=== PATIENT | male | born 1985 | race African-American/Black ===

== ENCOUNTER 2017-08-20 08:59 | Emergency (ER) | payer OTHER ==
[~2017-08-20] VITALS: Ht 182.9 cm; Wt 100.0 kg
[~2017-08-20 08:59] MED LIST: AMOXICILLIN500 MG PO; BENADRYL 50MG C50 MG PO; CEPHALEXIN500 MG PO; DENIES CURRENT MEDS; FLEXERIL10 MG PO; NAPROSYN500 MG PO; NO HOME MEDS
[2017-08-20] MEDS ORDERED: BACTRIM DS1 TAB PO (09:21)
[2017-08-20] MEDS ORDERED: MOTRIN800 MG PO (09:21)
[2017-08-20 09:33] VITALS: BP 126/88
== END 2017-08-20 09:35 | disposition home or self-care (01) | DRG 558 ==
LOC: ED 08:59
DX: M70.21 Olecranon bursitis, right elbow (principal); M25.521 Pain in right elbow

== ENCOUNTER 2019-03-03 14:54 | Emergency (ER) | payer SELFPAY ==
[~2019-03-03] VITALS: Ht 182.9 cm; Wt 80.0 kg
[~2019-03-03 14:54] MED LIST changes: +BACTRIM DS1 TAB PO; +MOTRIN800 MG PO
[2019-03-03] MEDS ORDERED: CEPHALEXIN500 M1 PO (15:27)
[2019-03-03 15:40] VITALS: BP 123/83
== END 2019-03-03 15:40 | disposition home or self-care (01) | DRG 603 ==
LOC: ED 14:54
DX: L08.9 Local infection of the skin and subcutaneous tissue, unspecified (principal); F17.200 Nicotine dependence, unspecified, uncomplicated

== ENCOUNTER 2019-09-17 | Emergency (ER) | payer SELFPAY ==
[~2019-09-17] MED LIST changes: +CEPHALEXIN500 M1 PO
[2019-09-17 21:36] LABS: URINE BILIRUBIN - DIPSTICK NEGATIVE (NEGATIVE); URINE BLOOD DIPSTICK NEGATIVE (NEGATIVE); URINE COLOR YELLOW; URINE GLUCOSE - DIPSTICK NEGATIVE (NEGATIVE); URINE KETONE TRACE mg/dL (NEGATIVE); URINE LEUK ESTERASE NEGATIVE (NEGATIVE); URINE NITRITE - DIPSTICK NEGATIVE (Negative); URINE PROTEIN - DIPSTICK NEGATIVE (NEG-TRACE); URINE SPECIFIC GRAVITY >=1.030; URINE UROBILINOGEN - DIPSTICK 0.2 E.U./dL (0.2)
[2019-09-17 21:40] LABS: BARBITURATES NEGATIVE (NEGATIVE); COCAINE NEGATIVE (NEGATIVE); HEMATOCRIT 40.9 % (39.0-50.0); HEMOGLOBIN 12.9 g/dl (14.0-18.0); IMMATURE GRANULOCYTES 0.2 % (0.0-5.0); MEAN CELL VOLUME 88.1 fL CALC (80.0-100.0); MEAN CORPUSCULAR HGB 27.8 pG CALC (26.0-32.0); MEAN CORPUSCULAR HGB CONC 31.5 g/L CALC (32.0-36.0); METHADONE NEGATIVE (NEGATIVE); NEUT# 4.48 thou/uL (1.82-7.42); OXCYCODONE NEGATIVE (NEGATIVE); RED BLOOD COUNT 4.64 mill/uL (4.70-6.10); RED CELL DISTRI WIDTH 13.2 % (11.5-15.5); TETRAHYDROCANNABIONOL POSITIVE (NEGATIVE); TRICYLIC ANTIDEPRESSANTS NEGATIVE (NEGATIVE)
[2019-09-17 21:59] LABS: ALBUMIN 4.1 g/dL (3.2-5.0); ALKALINE PHOSPHATASE 59 u/l (38-126); ANION GAP 12 (6-22 (CALC)); BILIRUBIN, TOTAL 0.5 mg/dL (0.0-1.4); BUN 17 mg/dL (9-20); BUN/CREATININE RATIO 15 (12-20 (CALC)); CARBON DIOXIDE 26 mmol/l (22-30); CHLORIDE 106 mmol/l (95-108); CREATININE 1.1 mg/dL (0.7-1.3); GFR > 60 ML/MIN (>=60 (CALC)); GFR FOR AFR.AMER. > 60 ML/MIN (>=60 (CALC)); POTASSIUM 4.3 mmol/l (3.5-5.1); SGOT/AST 27 u/l (17-59); SODIUM 139 mmol/l (137-146); TOTAL PROTEIN 7.1 g/dL (6.3-8.2)
[2019-09-17 22:03] LABS: ACT PARTIAL THROMBO TIME 27.8 SECONDS (20.0-32.5); D-DIMER 0.17 mg/L (0.19-0.60); PROTHROMBIN TIME 10.8 SECONDS (9.0-12.5)
[2019-09-17 22:11] LABS: MYOGLOBIN 87 ng/mL (0 - 121)
[2019-09-17] MEDS ORDERED: TORADOL PO (23:57)
== END 2019-09-18 00:15 | disposition home or self-care (01) | DRG 313 ==
PROVIDERS: Family Medicine
DX: R07.89 Other chest pain (principal); F17.290 Nicotine dependence, other tobacco product, uncomplicated

== ENCOUNTER 2019-11-26 10:24 | Emergency (ER) | payer SELFPAY ==
[~2019-11-26 10:24] MED LIST changes: +TORADOL PO
[2019-11-26 11:11] LABS: HEMATOCRIT 42.5 % (39.0-50.0); HEMOGLOBIN 13.4 g/dl (14.0-18.0); IMMATURE GRANULOCYTES 0.1 % (0.0-5.0); MEAN CELL VOLUME 86.9 fL CALC (80.0-100.0); MEAN CORPUSCULAR HGB 27.4 pG CALC (26.0-32.0); MEAN CORPUSCULAR HGB CONC 31.5 g/dL CAL (32.0-36.0); NEUT# 4.05 thou/uL (1.82-7.42); RED BLOOD COUNT 4.89 mill/uL (4.70-6.10); RED CELL DISTRI WIDTH 13.2 % (11.5-15.5)
[2019-11-26 11:13] LABS: URINE BILIRUBIN - DIPSTICK NEGATIVE (NEGATIVE); URINE BLOOD DIPSTICK NEGATIVE (NEGATIVE); URINE COLOR YELLOW; URINE GLUCOSE - DIPSTICK NEGATIVE (NEGATIVE); URINE KETONE NEGATIVE (NEGATIVE); URINE LEUK ESTERASE NEGATIVE (NEGATIVE); URINE NITRITE - DIPSTICK NEGATIVE (Negative); URINE PROTEIN - DIPSTICK NEGATIVE (NEG-TRACE); URINE SPECIFIC GRAVITY 1.025; URINE UROBILINOGEN - DIPSTICK 0.2 E.U./dL (0.2)
[2019-11-26 11:18] LABS: ANION GAP 9 (6-22 (CALC)); BUN 14 mg/dL (9-20); BUN/CREATININE RATIO 13 (12-20 (CALC)); CARBON DIOXIDE 27 mmol/l (22-30); CHLORIDE 105 mmol/l (95-108); CREATININE 1.1 mg/dL (0.7-1.3); GFR > 60 ML/MIN (>=60 (CALC)); GFR FOR AFR.AMER. > 60 ML/MIN (>=60 (CALC)); SODIUM 137 mmol/l (137-146)
[2019-11-26] MEDS ORDERED: VIAGRA50 MG PO ×2 (11:41→11:44)
[2019-11-26 12:23] VITALS: BP 138/96
== END 2019-11-26 12:28 | disposition home or self-care (01) | DRG 730 ==
LOC: ED 10:24
PROVIDERS: Family Medicine
DX: N52.9 Male erectile dysfunction, unspecified (principal); F17.200 Nicotine dependence, unspecified, uncomplicated

== ENCOUNTER 2022-02-13 16:16 | Emergency (ER) | payer SELFPAY ==
[~2022-02-13] VITALS: Ht 182.9 cm; Wt 90.9 kg
[~2022-02-13 16:16] MED LIST changes: +VIAGRA50 MG PO
[2022-02-13 16:55] VITALS: BP 126/83
== END 2022-02-13 19:36 | disposition left against medical advice (07) | DRG 951 ==
LOC: ED 16:16 → LWOBS 19:36
DX: Z53.21 Procedure and treatment not carried out due to patient leaving prior to being seen by health care provider (principal)

== ENCOUNTER 2022-08-26 14:46 | Emergency (ER) | payer SELFPAY ==
[~2022-08-26] VITALS: Ht 182.9 cm; Wt 60.0 kg
[2022-08-26 15:43] VITALS: BP 118/76
[2022-08-26 15:45] VITALS: BP 97/60
[2022-08-26 16:00] VITALS: BP 100/65
[2022-08-26] MEDS ORDERED: FLEXERIL5 M1 PO (17:35)
[2022-08-26] MEDS ORDERED: NAPROXEN500 MG PO (17:35)
[2022-08-26 17:49] VITALS: BP 100/65
== END 2022-08-26 18:00 | disposition home or self-care (01) | DRG 552 ==
LOC: ED 14:46
DX: M54.50 Low back pain, unspecified (principal); F17.200 Nicotine dependence, unspecified, uncomplicated

== ENCOUNTER 2022-11-20 11:45 | Emergency (ER) | payer SELFPAY ==
[~2022-11-20] VITALS: Ht 182.9 cm; Wt 82.0 kg
[2022-11-20] VITALS (15 sets, daily range): BP systolic 101–123; BP diastolic 67–86
[~2022-11-20 11:45] MED LIST changes: +FLEXERIL5 M1 PO; +NAPROXEN500 MG PO
[2022-11-20 13:28] LABS: BASO% 0.4 % (0-3); EOS% 2.7 % (0-8); HEMATOCRIT 40.3 % (39.0-50.0); HEMOGLOBIN 12.7 g/dl (14.0-18.0); IMMATURE GRANULOCYTES 0.1 % (0.0-5.0); MEAN CELL VOLUME 90.4 fL CALC (80.0-100.0); MEAN CORPUSCULAR HGB 28.5 pG CALC (26.0-32.0); MEAN CORPUSCULAR HGB CONC 31.5 g/dL CAL (32.0-36.0); MONO% 11.9 % (2-13); NEUT# 3.97 thou/uL (1.82-7.42); NEUT% 56.9 % (42-76); RED BLOOD COUNT 4.46 mill/uL (4.70-6.10); RED CELL DISTRI WIDTH 13.6 % (11.5-15.5)
[2022-11-20 13:41] LABS: ALKALINE PHOSPHATASE 48 u/l (38-126); ANION GAP 7 (6-22 (CALC)); BILIRUBIN, TOTAL 0.8 mg/dL (0.2-1.3); BUN 13 mg/dL (9-20); BUN/CREATININE RATIO 14 (12-20 (CALC)); CARBON DIOXIDE 28 mmol/l (22-30); CHLORIDE 108 mmol/l (95-108); CREATININE 0.9 mg/dL (0.7-1.3); GFR FOR AFR.AMER. > 60 ML/MIN (>=60 (CALC)); GFR OTHER RACES > 60 ML/MIN (>=60 (CALC)); MAGNESIUM 1.9 mg/dL (1.6-2.3); POTASSIUM 4.4 mmol/l (3.5-5.1); SGOT/AST 34 u/l (17-59); SODIUM 138 mmol/l (137-146); TOTAL PROTEIN 6.8 g/dL (6.3-8.2)
[2022-11-20 13:59] LABS: URINE BILIRUBIN - DIPSTICK NEGATIVE (NEGATIVE); URINE BLOOD DIPSTICK NEGATIVE (NEGATIVE); URINE COLOR YELLOW; URINE GLUCOSE - DIPSTICK NEGATIVE (NEGATIVE); URINE KETONE NEGATIVE (NEGATIVE); URINE LEUK ESTERASE NEGATIVE (NEGATIVE); URINE PH 6.5 (4.5-8.0); URINE PROTEIN - DIPSTICK NEGATIVE (NEG-TRACE); URINE SPECIFIC GRAVITY 1.025
[2022-11-20 14:04] LABS: URINE NITRITE - DIPSTICK NEGATIVE (Negative)
[2022-11-20] MEDS ORDERED: MIRALAX17 GM PO (16:53)
[2022-11-20] MEDS ORDERED: TAMSULOSIN0.4 MG PO (16:53)
== END 2022-11-20 17:21 | disposition home or self-care (01) | DRG 392 ==
LOC: ED 11:45
PROVIDERS: Nurse Practitioner
DX: K59.00 Constipation, unspecified (principal); R35.0 Frequency of micturition; F17.200 Nicotine dependence, unspecified, uncomplicated
CPT/HCPCS: Q9967